=== PATIENT | male | born 1990 | race Caucasian/White ===

== ENCOUNTER 2020-06-26 19:43 | Emergency (ER) | payer OTHER ==
[~2020-06-26] VITALS: Ht 182.9 cm; Wt 79.0 kg
[2020-06-26 20:20] VITALS: BP 113/55
--- NOTE | 2020-06-26 20:27 | PHYS DOC ---
Past Medical History Past Medical History: No Pertinent History Past Surgical History: No Surgical History Smoking Status: Current Every Day Smoker Alcohol Use: Occasionally Drug Use: Marijuana General Adult EDM: Chief Complaint: DENTAL PROBLEM HPI: HPI: Patient is a 29 year old with a chief complaint of bilateral maxillary molar pain. Patient says he is got known dental caries and over the last couple days he has noticed increased pain in the left maxillary molars left greater than right and felt like he may have cracked it more while eating today. Pain is moderate at rest and severe with eating and the symptoms are much worse with cold. Patient denies any fever or radiation of pain. Review of Systems: Review of Systems: Constitutional: Denies fever or chills. [] Eyes: Denies change in visual acuity. [] HENT: Complains of dental pain but denies nasal congestion or sore throat. [] Respiratory: Denies cough or shortness of breath. [] Cardiovascular: Denies chest pain or edema. [] GI: Denies abdominal pain, nausea, vomiting, bloody stools or diarrhea. [] : Denies dysuria. [] Musculoskeletal: Denies back pain or joint pain. [] Integument: Denies rash. [] Neurologic: Denies headache, focal weakness or sensory changes. [] Endocrine: Denies polyuria or polydipsia. [] Lymphatic: Denies swollen glands. [] Psychiatric: Denies depression or anxiety. [] Heart Score: Risk Factors: Risk Factors: DM, Current or recent (<one month) smoker, HTN, HLP, family history of CAD, obesity. Risk Scores: Score 0 - 3: 2.5% MACE over next 6 weeks - Discharge Home Score 4 - 6: 20.3% MACE over next 6 weeks - Admit for Clinical Observation Score 7 - 10: 72.7% MACE over next 6 weeks - Early Invasive Strategies Allergies: Allergies: Allergies Coded Allergies Type Severity Reaction Last Updated Verified No Known Drug Allergies 11/24/13 No Physical Exam: PE: Constitutional: Well developed, well nourished, no acute distress, non-toxic appearance. [] HENT: Normocephalic, atraumatic, bilateral external ears normal, oropharynx moist, no oral exudates, widespread dental decay with some mild swelling in the bilateral maxillary molar area with dental caries no drainable abscess, the floor of mouth is soft, no Kane angina, nose normal. [] Eyes: PERRLA, EOMI, conjunctiva normal, no discharge. [] Neck: Normal range of motion, no tenderness, supple, no stridor. [] Cardiovascular:Heart rate regular rhythm, peripheral pulses intact, cap refill brisk Lungs & Thorax: Bilateral breath sounds clear, no respiratory distress Abdomen: Soft nondistended Skin: Warm, dry, no erythema, no rash. [] Back: No tenderness, no CVA tenderness. [] Extremities: No tenderness, no cyanosis, no clubbing, ROM intact, no edema. [] Neurologic: Alert and oriented X 3, normal motor function, normal sensory function, no focal deficits noted. [] Psychologic: Affect normal, judgement normal, mood normal. [] Current Patient Data: Vital Signs: Vital Signs Date Time Temp Pulse Resp B/P (MAP) Pulse Ox O2 Delivery O2 Flow Rate FiO2 06/26/20 20:20 98.2 74 18 113/55 (74) 96 Room Air 98.2 EKG: EKG: [] Radiology/Procedures: Radiology/Procedures: [] Course & Med Decision Making: Course & Med Decision Making Pertinent Labs and Imaging studies reviewed. (See chart for details) [] Widespread dental decay without drainable abscess. No evidence of submandibular abscess. Patient with patient antibiotics and pain meds. Dragon Disclaimer: Jeison Disclaimer: This electronic medical record was generated, in whole or in part, using a voice recognition dictation system. Departure Departure Impression: Primary Impression: Dental caries Disposition: 01 HOME, SELF-CARE Condition: STABLE Referrals: DENTIST NO PCP (PCP) 2-3 DAYS Patient Instructions: Dental Abscess Additional Instructions: EMERGENCY DEPARTMENT GENERAL DISCHARGE INSTRUCTIONS THANK YOU for coming to [facility] Emergency Department (ED) today and trusting us with your care. We trust that you had a positive experience in our Emergency Department. If you wish to speak to the department Management you can contact the human resources department supervisor at . YOUR FOLLOW UP INSTRUCTIONS ARE FOLLOWS: Do you have a private doctor? If you do not have a private doctor, please ask for a resource list of physicians or clinics that may be able to assist you with follow up care. The Emergency Physician has interpreted your x-rays. The X-ray specialist will also review them. If there is a change in the findings you will be notified in 48 hours when at all possible. A lab test or lab culture may have been done, your results will be reviewed and you will be notified if you need a change in treatment. ADDITIONAL INSTRUCTIONS AND INFORMATION Your care today has been supervised by a physician who is specially trained in emergency care. Many problems require more than one evaluation for a complete diagnosis and treatment. We recommend that you schedule your follow up appointment as recommended to ensure complete treatment of your illness or injury. If you are unable to obtain follow up care and continue to have a problem, or if your condition worsens we recommend that you return to the ED. We are not able to safely determine your condition over the phone nor are we able to give sound medical advice over the phone. For these safety reasons, if you call for medical advice we will ask you to come to the ED for further evaluation If you have any questions regarding these discharge instructions please call the ED at . SAFETY INFORMATION In the interest of safety, wellness, and injury prevention; we encourage you to wear your seatbelt, if you smoke; quit smoking, and we encourage your family to use protective helmet for bicycling and other sporting events that present an increased risk for head injury. IF YOUR SYMPTOMS WORSEN OR NEW SYMPTOMS DEVELOP, OR YOU HAVE CONCERNS ABOUT YOUR CONDITION; OR IF YOUR CONDITION WORSENS WHILE YOU ARE WAITING FOR YOUR FOLLOW UP APPOINTMENT; EITHER CONTACT YOUR PRIMARY CARE DOCTOR, THE PHYSICIAN WHOSE NAME AND NUMBER YOU WERE GIVEN, OR RETURN TO THE ED IMMEDIATELY. Scripts Hydrocodone/Apap 5-325 (NORCO 5-325 TABLET) 1 Each Tablet 1-2 EACH PO PRN Q6HRS PRN for PAIN, #12 as needed for pain Prov: MESSI ZIMMERMAN MD 06/26/20 Penicillin V Potassium (PENICILLIN V POTASSIUM) 500 Mg Tablet 1 TAB PO QID, #40 TAB Prov: MESSI ZIMMERMAN MD 06/26/20 Justicifation of Admission Dx: Justifications for Admission: Justification of Admission Dx: N/A MESSI ZIMMERMAN MD Jun 26, 2020 20:27
[2020-06-26] MEDS ORDERED: HYDR-3164 PO (20:35)
[2020-06-26] MEDS ORDERED: PENI500T PO (20:35)
== END 2020-06-26 20:45 | disposition home or self-care (01) ==
LOC: ER 19:43
DX: K02.9 Dental caries, unspecified (principal); K08.89 Other specified disorders of teeth and supporting structures; R60.0 Localized edema; F17.200 Nicotine dependence, unspecified, uncomplicated; F12.90 Cannabis use, unspecified, uncomplicated
CPT/HCPCS: 99283

== ENCOUNTER 2021-02-27 09:22 | Emergency (ER) | payer OTHER ==
[~2021-02-27] VITALS: Ht 182.9 cm; Wt 79.5 kg
[~2021-02-27 09:22] MED LIST: HYDR-3164 PO; PENI500T PO
[2021-02-27] MEDS ORDERED: fentaNYL PF VIAL 100 MCG/2 ML VIAL IVP ONE (10:15)
[2021-02-27] MEDS ORDERED: CLINDAMYCIN 900MG PREMIX 50 ML IV ONE (10:15)
[2021-02-27] MEDS ORDERED: IV NORMAL SALINE 1000ML BAG 1,000 ML IV ONE (10:15)
[2021-02-27] MEDS ORDERED: methylPREDNISolone SOD SUCC PF 125 MG/2 ML VIAL. IV ONE (10:30)
--- NOTE | 2021-02-27 10:53 | PHYS DOC ---
Past Medical History Past Medical History: No Pertinent History Past Surgical History: No Surgical History Smoking Status: Current Every Day Smoker Additional Information: 2ppd Alcohol Use: Occasionally Drug Use: Marijuana General Adult EDM: Chief Complaint: DENTAL PROBLEM HPI: HPI: Patient is a 30 year old male who presents with for last 2 weeks he has been on amoxicillin and then switched to Augmentin of which he started on this past Wednesday. He has left lower facial swelling and cannot open his mouth. He states he last took 800 mg of ibuprofen this morning at 7:00. He was sent over from [facility] for possible IV antibiotics. He does have a history of smoking. He rates his pain at a 5 out of 10. He denies fever, nausea, vomiting, body aches, headache, dizziness, shortness of breath, chest pain. He is unable to stick his tongue out at me or open his mouth for me to check under his tongue. He does state that he feels like under his tongue is swollen. Review of Systems: Review of Systems: Constitutional: Denies fever or chills. [] Eyes: Denies change in visual acuity. [] HENT: Denies nasal congestion or sore throat. + Dental abscess [] Respiratory: Denies cough or shortness of breath. [] Cardiovascular: Denies chest pain or edema. [] GI: Denies abdominal pain, nausea, vomiting, bloody stools or diarrhea. [] : Denies dysuria. [] Musculoskeletal: Denies back pain or joint pain. [] Integument: Denies rash. + Left facial swelling [] Neurologic: Denies headache, focal weakness or sensory changes. [] Endocrine: Denies polyuria or polydipsia. [] Lymphatic: Denies swollen glands. [] Psychiatric: Denies depression or anxiety. [] Heart Score: C/O Chest Pain: No Risk Factors: Risk Factors: DM, Current or recent (<one month) smoker, HTN, HLP, family history of CAD, obesity. Risk Scores: Score 0 - 3: 2.5% MACE over next 6 weeks - Discharge Home Score 4 - 6: 20.3% MACE over next 6 weeks - Admit for Clinical Observation Score 7 - 10: 72.7% MACE over next 6 weeks - Early Invasive Strategies Current Medications: Current Medications Medications (Trade) Dose Ordered Sig/Jennifer Start Time Stop Time Status Last Admin Dose Admin Clindamycin Phosphate 50 ml @ 100 mls/hr 1X ONCE 02/27/21 10:15 02/27/21 10:44 DC Fentanyl Citrate (Fentanyl 2ml Vial) 50 mcg 1X ONCE 02/27/21 10:15 02/27/21 10:22 DC Methylprednisolone Sodium Succinate (SOLU-Medrol 125MG VIAL) 80 mg 1X ONCE 02/27/21 10:30 02/27/21 10:31 DC Sodium Chloride 1,000 ml @ 1,000 mls/hr 1X ONCE 02/27/21 10:15 02/27/21 11:14 Allergies: Allergies: Allergies Coded Allergies Type Severity Reaction Last Updated Verified No Known Drug Allergies 02/27/21 No Physical Exam: PE: Constitutional: Well developed, well nourished, no acute distress, non-toxic appearance. [] HENT: Normocephalic, atraumatic, bilateral external ears normal, oropharynx moist, no oral exudates, nose normal. Unable to open mouth. Can stick out the very tip of his tongue through his teeth. Left-sided facial swelling with slight tenderness but no redness to suspect facial cellulitis. [] Eyes: PERRLA, EOMI, conjunctiva normal, no discharge. [] Neck: Normal range of motion, no tenderness, supple, no stridor. [] Cardiovascular:Heart rate regular rhythm, no murmur [] Lungs & Thorax: Bilateral breath sounds clear to auscultation [] Abdomen: Bowel sounds normal, soft, no tenderness, no masses, no pulsatile masses. [] Skin: Warm, dry, no erythema, no rash. [] Back: No tenderness, no CVA tenderness. [] Extremities: No tenderness, no cyanosis, no clubbing, ROM intact, no edema. [] Neurologic: Alert and oriented X 3, normal motor function, normal sensory function, no focal deficits noted. [] Psychologic: Affect normal, judgement normal, mood normal. [] Current Patient Data: Vital Signs: Vital Signs Date Time Temp Pulse Resp B/P (MAP) Pulse Ox O2 Delivery O2 Flow Rate FiO2 02/27/21 09:35 97.9 80 16 140/91 (107) 100 97.9 EKG: EKG: [] Radiology/Procedures: Radiology/Procedures: [] Impression: [facility] [address] [place] [address] IMAGING REPORT Signed PATIENT: KIRBY MILLER ACCOUNT: [id number] : 1990 LOCATION: ER AGE: 30 SEX: M EXAM STATUS: REG ER ORD. PHYSICIAN: SHIKHA ALVAREZ APRN REASON: dental abscess, possible ludwigs PROCEDURE: CT SOFT TISSUE NECK W/CONTRAST Site ID: [id number] EXAMINATION: CT NECK SOFT TISSUE WITH IV CONTRAST. Technique: Axial images with coronal and sagittal reconstructions are performed of neck with intravenous contrast. 75 ml of Omnipaque 300 was administered intravenously. One or more of the following radiation dose reduction techniques was used: automated exposure control, adjustment of mA and/or KV according to patient size, and/or utilization of iterative reconstruction technique. HISTORY: 30 years Male Reason: dental abscess, possible ludwigs COMPARISON: None. FINDINGS: There is a left submandibular abscess measuring 4.4 x 1.4 x 2.7 cm. There is surrounding catheter thickening of the soft tissues. The abscess is a above the level of the submandibular gland and the extends into the lateral aspect of the floor of the mouth abutting the inner aspect of the left mandible. There is lucency around the second molar the tooth in the left side of the lower jaw which is probably the source of infection. The abscess does not have significant extension into the parapharyngeal space and the does not the appears to compromise the airway. There is however mild impression on the oropharynx and asymmetry secondary to the fullness in the left parapharyngeal region. The submandibular gland on the left side is swollen and hypodense compatible with edema and inflammation. The right submandibular gland appear normal. The parotid the glands appear unremarkable. There is a reactive mild lymphadenopathy in the left side of the cervical chain measuring up to 1.4 cm in short axis. Unremarkable vascular enhancement is seen in the carotid arteries and the jugular veins. The thyroid gland appear unremarkable. The lung apices and the osseous structures appear grossly unremarkable. The paranasal sinuses appear clear. IMPRESSION: Left submandibular the abscess associated with surrounding inflammatory changes and swelling. There is associated the lucency around the lower left second molar tooth suggestive of dental source of infection. Electronically signed by: Donte Brown MD (02/27/2021 12:24 PM) [id number] DICTATED and SIGNED BY: DONTE BROWN MD DATE: 02/27/21 [id number] Course & Med Decision Making: Course & Med Decision Making Pertinent Labs and Imaging studies reviewed. (See chart for details) See HPI. Speaks in clear sentences. Alert and oriented x4. Skin pink warm and dry. Afebrile. No respiratory distress. Comfort dental states it is tooth #18 that is infected. No facial redness to suspect cellulitis. Can stick tip of his tongue through his front teeth. Patient has a large left submandibular abscess extending to the floor of the mouth. Patient was given clindamycin in the ED IV. Patient is being transferred for continuation of care for ENT to [facility] which was the patient's preference. Admitting doctor is Dr. Lucas. [] Jeison Disclaimer: Jeison Disclaimer: This electronic medical record was generated, in whole or in part, using a voice recognition dictation system. Departure Departure Impression: Primary Impression: Submandibular abscess Disposition: 02 [facility] ([facility]) Condition: STABLE Referrals: NO PCP (PCP) SHIKHA ALVAREZ WELL FLOW OPERATOR February 27, 2021 10:53
[2021-02-27] MEDS ORDERED: IOHEXOL 300 MG/ML 100ML VIAL. IV ONE (11:15)
[2021-02-27] MEDS ORDERED: CONTRAST GIVEN. MC PRN (11:15)
[2021-02-27 11:27] LABS: BASO % 0 % (0-3); EOS # 0.3 x10^3/uL (0.0-0.7); EOS % 2 % (0-3); HEMOGLOBIN 15.5 g/dL (13.0-17.5); LYMPH # 1.1 x10^3/uL (1.0-4.8); LYMPH % 7 % (24-48); MEAN CORPUSCULAR HEMOGLOBIN 33 pg (25-35); MEAN CORPUSCULAR HGB CONC 35 g/dL (31-37); MEAN CORPUSCULAR VOLUME 95 fL (79-100); MONO # 1.5 x10^3/uL (0.0-1.1); MONO % 9 % (0-9); NEUT # 13.7 x10^3/uL (1.8-7.7); NEUT % 83 % (31-73); PLATELET COUNT 377 x10^3/uL (140-400); RED BLOOD COUNT 4.73 x10^6/uL (4.30-5.70); RED CELL DISTRIBUTION WIDTH 12.5 % (11.5-14.5); WHITE BLOOD COUNT 16.6 x10^3/uL (4.0-11.0)
[2021-02-27 11:40] LABS: CALCIUM 9.6 mg/dL (8.5-10.1); CREATININE 1.2 mg/dL (0.7-1.3); GFR 70.2; POTASSIUM 4.9 mmol/L (3.5-5.1)
[2021-02-27 11:45] LABS: ALBUMIN 3.9 g/dL (3.4-5.0); ALBUMIN/GLOBULIN RATIO 0.9 (1.0-1.7); TOTAL BILIRUBIN 0.3 mg/dL (0.2-1.0); TOTAL PROTEIN 8.3 g/dL (6.4-8.2)
[2021-02-27 12:15] LABS: % BANDS 5 % (0-9); % EOS 4 % (0-5); % LYMPHS 8 % (24-48); % MONOS 5 % (0-10); % SEGS 78 % (35-66); PLT ESTIMATE ADEQUATE (ADEQUATE)
--- NOTE | 2021-02-27 12:26 | RAD ---
Site ID: [id number] EXAMINATION: CT NECK SOFT TISSUE WITH IV CONTRAST. Technique: Axial images with coronal and sagittal reconstructions are performed of neck with intraven ous contrast. 75 ml of Omnipaque 300 was administered intravenously. One or more of the following radiation dose reduction techniques was used: automated exposure control , adjustment of mA and/or KV according to patient size, and/or utilization of iterative reconstructio n technique. HISTORY: 30 years Male Reason: dental abscess, possible ludwigs COMPARISON: None. FINDINGS: There is a left submandibular abscess measuring 4.4 x 1.4 x 2.7 cm. There is surrounding catheter thi ckening of the soft tissues. The abscess is a above the level of the submandibular gland and the exte nds into the lateral aspect of the floor of the mouth abutting the inner aspect of the left mandible. There is lucency around the second molar the tooth in the left side of the lower jaw which is probab ly the source of infection. The abscess does not have significant extension into the parapharyngeal s pace and the does not the appears to compromise the airway. There is however mild impression on the o ropharynx and asymmetry secondary to the fullness in the left parapharyngeal region. The submandibular gland on the left side is swollen and hypodense compatible with edema and inflammat ion. The right submandibular gland appear normal. The parotid the glands appear unremarkable. There is a reactive mild lymphadenopathy in the left side of the cervical chain measuring up to 1.4 c m in short axis. Unremarkable vascular enhancement is seen in the carotid arteries and the jugular veins. The thyroid gland appear unremarkable. The lung apices and the osseous structures appear grossly unremarkable. The paranasal sinuses appear clear. IMPRESSION: Left submandibular the abscess associated with surrounding inflammatory changes and swelling. There i s associated the lucency around the lower left second molar tooth suggestive of dental source of infe ction. Electronically signed by: Bismark Brown MD (02/27/2021 12:24 PM) [id number]
[2021-02-27 18:13] VITALS: BP 130/62
== END 2021-02-27 19:00 | disposition short-term general hospital (02) ==
LOC: ER 09:22
DX: K12.2 Cellulitis and abscess of mouth (principal); F17.200 Nicotine dependence, unspecified, uncomplicated; Z20.822 Contact with and (suspected) exposure to COVID-19
CPT/HCPCS: 36415; 70491; 80053; 83605; 85007; 85025; 87040; 87426; 96365; 96375; 99285; J2930; J3010; J3490; J7030; Q9967; U0003; U0005